=== PATIENT | female | born 1955 | race Caucasian/White ===

== ENCOUNTER → 2018-09-25 | Outpatient (CLI) | payer BC ==
--- NOTE | 2018-09-25 12:54 | KCIC ---
EXAM: Dual energy x-ray absorptiometry (DEXA). HISTORY: Postmenopausal female presents for osteoporosis screening. COMPARISON: 10/02/2012. TECHNIQUE: Dual energy x-ray absorptiometry of the lumbar spine and left hip was performed. Calculation of bone mineral density based on standard deviations above or below the expected young adult normal value (T-score) was completed. FINDINGS: The average bone mineral density in the 1st through 4th lumbar vertebrae is 0.773 g/cmxcm, corresponding with a T-score of -2.5. There has been a 4.1% decrease in density of the lumbar spine compared to the prior study. The average total bone mineral density in the left hip is 0.699 g/cmxcm, corresponding with a T-score of -2.0. There has been an 8.3% decrease in density of the left hip compared to the prior study. IMPRESSION: 1. Borderline osteoporosis measured at the lumbar spine. 2. Osteopenia measured at the left hip Note: Definitions established by the [employer] Organization: 1. Normal: T-score is -1.0 or above. 2. Osteopenia: T-score is between -1.0 and -2.5 . 3. Osteoporosis: T-score is -2.5 or below. Electronically signed by: Liz Rodriges MD (09/25/2018 12:51 PM) [facility]
== END | disposition home or self-care (01) ==
LOC: KCIC DEXA 10:21
PROVIDERS: ATTEND Family Medicine
DX: M81.8 Other osteoporosis without current pathological fracture (principal)
CPT/HCPCS: 77080

== ENCOUNTER → 2019-10-27 | Outpatient (CLI) | payer BC ==
--- NOTE | 2019-10-27 11:02 | KCIC ---
EXAM: Left knee, 3 views; pelvis and bilateral hips, 5 views. HISTORY: Pain. COMPARISON: None. FINDINGS: Left knee: 3 views of the left knee are obtained. There is no fracture, dislocation or subluxation. There is no joint effusion. There is minimal enthesopathy along the superior patella. There is a tiny benign bone island within the distal femur. Pelvis and bilateral hips: A frontal view the pelvis and frontal and frog-leg views of both hips are obtained. There is mild left hip joint space narrowing. There is mild left greater than right femoral head marginal spurring. There are few benign bone islands. There is no fracture, dislocation or subluxation. IMPRESSION: 1. Mild left greater than right hip osteoarthritis. 2. No acute osseous finding. Electronically signed by: Liz Rodriges MD (10/27/2019 11:00 AM) [facility]
== END | disposition home or self-care (01) ==
LOC: KCIC 10:07
PROVIDERS: ATTEND Family Medicine Adult Medicine
DX: M16.0 Bilateral primary osteoarthritis of hip (principal); M76.892 Other specified enthesopathies of left lower limb, excluding foot; M76.891 Other specified enthesopathies of right lower limb, excluding foot
CPT/HCPCS: 73521; 73562